=== PATIENT | male | born 2000 | race African-American/Black ===

== ENCOUNTER 2020-03-13 10:05 | Emergency (ER) | payer OTHER ==
[~2020-03-13] VITALS: Ht 180.3 cm; Wt 87.3 kg
[2020-03-13] MEDS ORDERED: IBUP-1022 PO (11:48)
[2020-03-13 12:01] VITALS: BP 127/98
--- NOTE | 2020-03-13 13:08 | REP ---
LEFT KNEE, FOUR VIEWS: There is no evidence of an acute fracture, dislocation, or intrinsic bone disease. IMPRESSION: No fracture or dislocation. Electronically Signed by Choco Andres MD 03/16/2020 09:52 P
== END 2020-03-13 12:05 | disposition home or self-care (01) ==
LOC: M ED 10:05
DX: M23.92 Unspecified internal derangement of left knee (principal)